=== PATIENT | female | born 1995 | race African-American/Black ===

== ENCOUNTER 2018-01-06 07:02 | Day surgery (SDC) | payer OTHER ==
[~2018-01-06 07:02] MED LIST: Buffered Lidocaine 0.9% SYRIN* 5 ML/SYR SYRINGE INTRADERM ONE; Dexamethasone TAB* 4 MG PO ONE; Famotidine IV* 10 MG/ML 2 ML (20 mg) IV ONE
[2018-01-06] MEDS ORDERED: Dexamethasone TAB* 4 MG ONE (07:16)
[2018-01-06] MEDS ORDERED: Ketorolac INJ* 30 MG/ML 1 ML VIAL ONE (07:16)
[2018-01-06] MEDS ORDERED: Famotidine IV* 10 MG/ML 2 ML (20 mg) ONE (07:16)
[2018-01-06] MEDS ORDERED: ceFAZolin 2 GM PREMIX (*) 2 GM/50 ML BAG IVPB ONE (07:16)
[2018-01-06] MEDS ORDERED: Buffered Lidocaine 0.9% SYRIN* 5 ML/SYR SYRINGE ONE (07:17)
[2018-01-06] MEDS ORDERED: Midazolam* 1 MG/ML 5 ML VIAL (5 MG) ONE (08:21)
[2018-01-06] MEDS ORDERED: fentaNYL* 50 MCG/ML 2 ML VIAL (100 MCG VIAL) ONE (08:21)
[2018-01-06] MEDS ORDERED: Lidocaine 1% INJ* 10 MG/ML 30 ML SDV ONE (08:35)
[2018-01-06] MEDS ORDERED: Bupivacaine 0.5% PF 10 ML VIAL INJ ONE (08:35)
[2018-01-06] MEDS ORDERED: DiMENhydriNATE IV* 50 MG/ML VIAL IV PUSH PRN (08:38)
[2018-01-06] MEDS ORDERED: oxyCODONE/Acetamin 5/325 MG* TAB PO PRN (08:38)
[2018-01-06] MEDS ORDERED: fentaNYL* 50 MCG/ML 2 ML VIAL (100 MCG VIAL) IV PRN (08:38)
[2018-01-06] MEDS ORDERED: Naloxone* 0.4 MG/ML 1 ML VIAL IV PRN (08:38)
[2018-01-06] MEDS ORDERED: Ondansetron INJ* 2 MG/ML VIAL IV PRN (08:38)
[2018-01-06] MEDS ORDERED: HYDROcodone/ACETAMIN 5-325 MG* 1 TAB PO PRN (08:38)
[2018-01-06] MEDS ORDERED: Propofol* 10 MG/ML 20 ML BTL IV PUSH ONE (08:46)
[2018-01-06] MEDS ORDERED: Lidocaine 2% PF * 5 ML VIAL ONE (08:46)
--- NOTE | 2018-01-06 09:35 | OP ---
Operative Report - Blank - Operative Report Date of Operation: 01/06/18 Note: Preop Dx: Right Breast Mass Postop Dx: Same Procedure: Excision of Right Breast Mass Surgeon: Rhoda Assist: LOYD Bello Anesthesia: MAC Fluids: 1000mL RL EBL: <10mL Drains: None Specimen: Right Breast Mass Complications: None Findings: Dictated
[2018-01-06 10:22] VITALS: BP 122/81
--- NOTE | 2018-01-07 10:06 | OP ---
CC: Dr. Gleason * DATE OF OPERATION: 01/06/18 - SDS DATE OF : [birth year] SURGEON: Bruce Duong MD [employer] OFFICER: None. ANESTHESIOLOGIST: Travis Rivera MD ANESTHESIA: LMA. PRE-OP DIAGNOSIS: Right breast mass. POST-OP DIAGNOSIS: Right breast mass. OPERATIVE PROCEDURE: Excision, right breast mass. DESCRIPTION OF PROCEDURE: The patient was supine on the operating room table. After adequate intravenous sedation, compression stockings, Anuradha Hugger warmer, and intravenous antibiotics, local anesthetic was administered. A curvilinear incision created in the upper outer aspect of the areolar margin. Dissection was carried down to an irregularly shaped 3-cm mass consistent with fibroadenoma. This was dissected free and removed in its entirety. Hemostasis was obtained using electrocautery and closure accomplished using 3-0 and 5-0 Vicryl followed by Steri-Strips. She tolerated the procedure well, was brought to Recovery in good condition. No complications. No drains. Pathologic specimen was right breast mass. Sponge and instrument counts correct. Estimated blood loss 10 mL. [id number]/CPS #: [id number] [facility]
== END 2018-01-06 10:27 | disposition home or self-care (01) ==
LOC: OR 07:02
PROVIDERS: ATTEND Surgery
DX: D24.1 Benign neoplasm of right breast (principal)
CPT/HCPCS: 81025; 88307; J0690; J1885; J2250; J2704; J3010; J8540